=== PATIENT | male | born 1960 | race African-American/Black ===

== ENCOUNTER 2016-12-31 10:17 | Emergency (ER) | payer OTHER ==
--- NOTE | ~2016-12-31 | CR21 ---
[facility] A Service of [facility] & [facility] RADIOLOGY TEXT RESULTS PATIENT: KATHY BAUM LOCATION: CFTX : 60 UNIT #: [id number] AGE: [address]: Cecy Grossman SEX: M ORDER DR: [id number] [facility] [address]. [place], [place] [address] [id number] MR#: [id number] Acc #: [id number] NAME: KATHY BAUM : 1960 SEX: M STUDY DATE/TIME: 12/31/2016 10:38 UNIT: CFTX ROOM: STUDY DESCRIPTION: CR Ankle Min 3 Views Rt Attending Physician: Cecy Grossman Pa-C Ordering Physician: Ed Doctor [id number] omid [facility] Primary Care Physician: Judi Escobar MEDICAL IMAGING REPORT This report is preliminary unless electronic signature is present EXAM 3 views right ankle, 12/31/2016 HISTORY 56-year-old male with right ankle pain greatest at the lateral malleolus after falling this morning and twisting his ankle. COMPARISON None FINDINGS No fracture. No dislocation. No retained radiopaque foreign body. No osteolytic or osteoblastic abnormality. Base of fifth metatarsal appears intact. IMPRESSION Normal right ankle. Dictated by... Estefany Vasquez M.D. THIS IS AN ELECTRONICALLY VERIFIED REPORT Estefany Vasquez M.D. at 01/01/2017 8:35 AM ANDRES/carolina TD: 12/31/2016 13:25 JOB #: [id number] MEDICAL IMAGING REPORT Page 1 of 1 COPY
--- NOTE | ~2016-12-31 | CR127 ---
[facility] A Service of [facility] RADIOLOGY TEXT RESULTS PATIENT: KATHY BAUM LOCATION: CFTX : 60 UNIT #: [id number] AGE: [address]: Cecy Grossman SEX: M ORDER DR: [id number] [facility] [address] [place], [place] [address] [id number] MR#: [id number] Acc #: [id number] NAME: KATHY BAUM : 1960 SEX: M STUDY DATE/TIME: 12/31/2016 10:41 UNIT: CFTX ROOM: STUDY DESCRIPTION: CR Foot Complete Min 3 View Rt Attending Physician: Cecy Grossman Pa-C Ordering Physician: Ed Doc Young Kellogg Primary Care Physician: Judi Escobar MEDICAL IMAGING REPORT This report is preliminary unless electronic signature is present EXAM Three views of the right foot. DATE 12/31/2016 HISTORY 56-year-old male with right foot and ankle pain near the lateral minutes after falling and twisting his ankle this morning. COMPARISON None. FINDINGS The tarsal, metatarsal, and phalangeal elements are all anatomically normal in position and alignment. There are no articular defects. No fractures or radiopaque foreign bodies in the soft tissues are apparent. IMPRESSION Normal foot. Dictated by... Estefany Vasquze M.D. THIS IS AN ELECTRONICALLY VERIFIED REPORT Estefany Vasquez M.D. at 01/01/2017 8:35 AM ANDRES/alicia TD: 12/31/2016 13:29 JOB #: [id number] MEDICAL IMAGING REPORT Page 1 of 1 COPY
[~2016-12-31 10:17] MED LIST: ALBUTEROL17 GM; ATARAX PO; BACTROBAN22 GM TP; COMBIVENT INH14.7 GM; CRESTOR; CRESTOR PO; FLEXERIL10 M1 PO; KEFLEX PO; MEDROL DOSEPAK4 MG DOB; ULTRAM PO; VOLTAREN75 MG PO
== END 2016-12-31 12:10 | disposition home or self-care (01) ==
LOC: CFTX 10:17 → CED 10:17 → CFTX 11:04
DX: S93.401A Sprain of unspecified ligament of right ankle, initial encounter (principal); F17.200 Nicotine dependence, unspecified, uncomplicated; X50.1XXA Overexertion from prolonged static or awkward postures, initial encounter; Y92.009 Unspecified place in unspecified non-institutional (private) residence as the place of occurrence of the external cause
CPT/HCPCS: 73610; 73630; 99283